=== PATIENT | male | born 1985 | race Two or more races ===

== ENCOUNTER 2023-05-05 10:31 | Emergency (ER) | payer SELFPAY ==
[~2023-05-05] VITALS: Ht 170.2 cm; Wt 124.5 kg
[2023-05-05 11:28] LABS: Basophils # (auto) 0.1 10 ^3/uL (0-0.2); Basophils % (auto) 0.7 % (0.0-2.0); Eosinophils # (auto) 0.2 10 ^3/uL (0-0.8); Eosinophils % (auto) 2.2 % (0.0-7.0); Hematocrit 51.8 % (41.0-53.0); Hemoglobin 16.9 g/dL (13.5-17.5); Lymphocytes # (auto) 2.8 10 ^3/uL (0.4-5.4); Lymphocytes % (auto) 25.9 % (10.0-50.0); Mean Corpuscular Hemoglobin 29.3 pg (28.0-32.0); Mean Corpuscular Hgb Conc. 32.6 g/dL (32.0-36.0); Mean Corpuscular Volume 89.9 fL (80.0-100.0); Monocytes # (auto) 0.7 10 ^3/uL (0-1.3); Monocytes % (auto) 6.3 % (0.0-12.0); Neutrophils % (auto) 64.9 % (37.0-80.0); Nucleated Red Blood Cells % 0.2 %; Red Blood Cells 5.76 10^6/uL (4.5-5.90); Red Cell Distribution Width 13.6 % (11.8-14.3); White Blood Cell 10.8 10^3/uL (4.4-10.8)
[2023-05-05 11:29] LABS: Alanine Aminotransferase 55 U/L (7-40); Albumin 4.5 g/dL (3.2-4.8); Alkaline Phosphatase 132 U/L (46-116); Anion Gap 8 (5-15); Aspartate Aminotransferase 41 U/L (13-40); BUN/Creatinine Ratio 12.2 (10.0-20.0); Blood Urea Nitrogen 9 mg/dL (9-23); Calcium 9.4 mg/dL (8.5-10.1); Carbon Dioxide 28 mmol/L (20-30); Chloride 100 mmol/L (98-107); Glucose 213 mg/dL (74-106); Potassium 4.1 mmol/L (3.5-5.1); Sodium 136 mmol/L (136-145); Total Protein 7.7 g/dL (5.7-8.2)
[2023-05-05] MEDS: LABETALOL HCL 5 MG/ML 4ML SYRINGE IV ONE (13:24)
[2023-05-05] MEDS: predniSONE 20 MG TAB PO ONE (13:24)
[2023-05-05] MEDS ORDERED: VALA500T33 PO (14:39)
[2023-05-05] MEDS ORDERED: PRED20TA2 PO (14:39)
[2023-05-05 14:59] VITALS: BP 141/97; PULSE 111; RESP 18; TEMP 98.2; O2SAT 97
== END 2023-05-05 15:00 | disposition home or self-care (01) ==
LOC: ER 10:31
DX: G51.0 Bell's palsy (principal); E11.9 Type 2 diabetes mellitus without complications; Z79.899 Other long term (current) drug therapy
CPT/HCPCS: 36415; 70450; 71045; 80053; 84484; 85025; 93005; 99285; J7512